=== PATIENT | male | born 1960 | race African-American/Black ===

== ENCOUNTER 2017-02-02 10:35 | Observation (INO) | payer OTHER ==
[2017-02-02] VITALS (9 sets, daily range): BP systolic 124–169; BP diastolic 81–102; PULSE 70–88; RESP 17–20; TEMP 96.5–97.7; O2SAT 95–98
[~2017-02-02] VITALS: Ht 180.3 cm; Wt 127.7 kg
[~2017-02-02 10:35] MED LIST: APPLTAB2 PO; BETA0.052 TOPICAL; FLAX10002; GLIP5TAB8 PO; IBUP1TAB7 PO; METF1000 PO; SIMV20TA PO; VITA500012 PO
[2017-02-02] MEDS ORDERED: ASPIRIN 81 MG CHEW TAB PO ONE (10:45)
[2017-02-02] MEDS ORDERED: NITROGLYCERIN 0.4 MG SL 25 TABS/BTL SL ONE (10:45)
[2017-02-02] MEDS ORDERED: SODIUM CHLORIDE 0.9% FLUSH 10 ML FLUSH IVF PRN (10:45)
--- NOTE | 2017-02-02 10:49 | PD ---
HPI Chief Complaint: Chest Pain Time Seen by Provider: 10:40 Travel History International Travel<30 days: No Contact w/Intl Traveler<30days: No History of Present Illness HPI 57-year-old male states that last night he developed pain in his right chest that moved over to his left chest and went down his arm today. He called his primary and they advised for him to come here. He states he's also having a little bit of shortness of breath with it. He denies other concurrent complaints. He states he's had a stress test before that was negative he thinks that he had at [facility] but does not know the exact date. He denies specific modifying factors. He states he took a baby aspirin before coming in. [facility] Past Medical History Arthritis: Yes (BILAT KNEES) High Cholesterol: Yes Diminished Hearing: No Pneumonia: Yes Social History Alcohol Use: Yes (1-2 DRINKS) Tobacco Use: No Substance Use: No Allergies-Medications (Allergen,Severity, Reaction): Coded Allergies: No Known Allergies (Unverified Allergy, Unknown, 02/02/17) Reported Meds & Prescriptions Reported Meds & Active Scripts Active Glipizide 5 Mg Tab 5 Mg PO DAILY Take 30 minutes before a meal Metformin (Metformin HCl) 1,000 Mg Tab 1,000 Mg PO BIDPC With meals Simvastatin 20 Mg Tab 20 Mg PO DAILY Ibuprofen 800 Mg Tab 800 Mg PO DAILY Reported Apple Cider Vinegar 500 Mg Tab 1 Tab PO DAILY Flax Seed Oil 1000 mg (Flaxseed (Linseed)) 1 Cap Cap Review of Systems Except as stated in HPI: all other systems reviewed are Neg Physical Exam Narrative GENERAL: Well-nourished, well-developed patient. Well-appearing SKIN: Warm and dry. HEAD: Normocephalic and atraumatic. EYES: No injection or drainage. ENT: No nasal drainage noted. NECK: Supple, trachea midline. CARDIOVASCULAR: Regular rate and rhythm RESPIRATORY: Breath sounds equal bilaterally. No accessory muscle use. GASTROINTESTINAL: Abdomen soft, non-tender, nondistended. EXTREMITIES: No edema. NEUROLOGICAL: Awake and alert. Motor and sensory grossly within normal limits. Normal speech. Data Data Last Documented VS Vital Signs Date Time Temp Pulse Resp B/P (MAP) Pulse Ox O2 Delivery O2 Flow Rate FiO2 02/02/17 13:40 55 02/02/17 12:12 17 150/81 (104) 97 Room Air 02/02/17 10:50 97.7 Orders Orders Electrocardiogram (02/02/17 10:44) B-Type Natriuretic Peptide (02/02/17 10:44) Ckmb (Isoenzyme) Profile (02/02/17 10:44) Complete Blood Count With Diff (02/02/17 10:44) Comprehensive Metabolic Panel (02/02/17 10:44) D-Dimer (02/02/17 10:44) Magnesium (Mg) (02/02/17 10:44) Prothrombin Time / Inr (Pt) (02/02/17 10:44) Act Partial Throm Time (Ptt) (02/02/17 10:44) Troponin I (02/02/17 10:44) Lipase (02/02/17 10:44) Chest, Single Ap (02/02/17 10:44) Ecg Monitoring (02/02/17 10:44) Bilateral Bp Monitoring (02/02/17 10:44) Iv Access Insert/Monitor (02/02/17 10:44) Oximetry (02/02/17 10:44) Aspirin Chew (Aspirin Chew) (02/02/17 10:45) Sodium Chloride 0.9% Flush (Ns Flush) (02/02/17 10:45) Nitroglycerin Sl (Nitrostat Sl) (02/02/17 10:45) CKMB (02/02/17 11:00) CKMB% (02/02/17 11:00) Ct Abd/Pel W Iv Contrast(Rout) (02/02/17 ) Iohexol 350 Inj (Omnipaque 350 Inj) (02/02/17 12:20) Admit Order (Ed Use Only) (02/02/17 13:41) Labs Laboratory Tests Test 02/02/17 11:00 White Blood Count 6.2 TH/MM3 Red Blood Count 5.45 MIL/MM3 Hemoglobin 12.6 GM/DL Hematocrit 39.5 % Mean Corpuscular Volume 72.5 FL Mean Corpuscular Hemoglobin 23.0 PG Mean Corpuscular Hemoglobin Concent 31.8 % Red Cell Distribution Width 14.3 % Platelet Count 246 TH/MM3 Mean Platelet Volume 7.2 FL Neutrophils (%) (Auto) 68.1 % Lymphocytes (%) (Auto) 16.9 % Monocytes (%) (Auto) 8.8 % Eosinophils (%) (Auto) 3.8 % Basophils (%) (Auto) 2.4 % Neutrophils # (Auto) 4.3 TH/MM3 Lymphocytes # (Auto) 1.0 TH/MM3 Monocytes # (Auto) 0.5 TH/MM3 Eosinophils # (Auto) 0.2 TH/MM3 Basophils # (Auto) 0.1 TH/MM3 CBC Comment AUTO DIFF Differential Comment AUTO DIFF CONFIRMED Prothrombin Time 10.7 SEC Prothromb Time International Ratio 1.0 RATIO Activated Partial Thromboplast Time 26.2 SEC D-Dimer Quantitative (PE/DVT) LESS THAN 0.19 MG/L FEU Blood Urea Nitrogen 16 MG/DL Creatinine 0.86 MG/DL Random Glucose 129 MG/DL Total Protein 7.8 GM/DL Albumin 4.1 GM/DL Calcium Level 9.6 MG/DL Magnesium Level 2.0 MG/DL Alkaline Phosphatase 58 U/L Aspartate Amino Transf (AST/SGOT) 16 U/L Alanine Aminotransferase (ALT/SGPT) 41 U/L Total Bilirubin 0.5 MG/DL Sodium Level 137 MEQ/L Potassium Level 4.3 MEQ/L Chloride Level 102 MEQ/L Carbon Dioxide Level 22.7 MEQ/L Anion Gap 12 MEQ/L Estimat Glomerular Filtration Rate 111 ML/MIN Total Creatine Kinase 117 U/L Creatine Kinase MB 1.2 NG/ML Troponin I LESS THAN 0.02 NG/ML B-Type Natriuretic Peptide 11 PG/ML Lipase 427 U/L MDM Medical Decision Making Medical Screen Exam Complete: Yes Emergency Medical Condition: Yes Medical Record Reviewed: Yes (past history confirmed) Interpretation(s) CBC & BMP Diagram 02/02/17 11:00 Total Protein 7.8, Albumin 4.1, Calcium Level 9.6, Magnesium Level 2.0, Alkaline Phosphatase 58, Aspartate Amino Transf (AST/SGOT) 16, Alanine Aminotransferase (ALT/SGPT) 41, Total Bilirubin 0.5 Last 24 hours Impressions Chest X-Ray 02/02/17 1044 Signed Impressions: Service Date/Time: Thursday, February 02, 2017 11:08 - CONCLUSION: Normal examination. Daniel Richard Jr., MD Abdomen/Pelvis CT 02/02/17 0000 Signed Impressions: Service Date/Time: Thursday, February 02, 2017 12:11 - CONCLUSION: 1. Moderate hepatic steatosis. 2. No acute inflammatory process. 3. Small mesenteric lymph nodes. 4. Prostatic seeds. Philip Sneed MD Differential Diagnosis PE, musculoskeletal, gastritis, atypical cardiac Narrative Course Will check blood work, chest x-ray, EKG and dose with aspirin and nitroglycerin and reevaluate D-dimer is negative, very minimal elevation in lipase patient having more chest pain will add on CT to rule out concurrent process CT without emergent findings, discussed with patient and given risk factors of age, diabetes, hypertension, high cholesterol and family history he agrees to chest pain center observation Physician Communication Physician Communication dr robles agrees to admit Diagnosis Primary Impression: Chest pain Qualified Codes: R07.9 - Chest pain, unspecified Admitting Information Admitting Physician Requests: Yue Conway MD Feb 02, 2017 10:49
[2017-02-02 11:10] LABS: AUTOMATED NEUTROPHIL # 4.3 TH/MM3 (1.8-7.7); BASOPHIL # 0.1 TH/MM3 (0-0.2); BASOPHIL % 2.4 % (0.0-2.0); EOSINOPHIL # 0.2 TH/MM3 (0-0.4); EOSINOPHIL % 3.8 % (0.0-4.0); HEMATOCRIT 39.5 % (39.0-51.0); HEMO FLAGS AUTO DIFF; LYMPH % 16.9 % (9.0-44.0); MEAN CELL VOLUME 72.5 FL (80.0-100.0); MEAN CORPUSCULAR HGB CONC 31.8 % (32.0-36.0); MONO % 8.8 % (0.0-8.0); NEUT % 68.1 % (16.0-70.0); PLATELET COUNT 246 TH/MM3 (150-450); RED BLOOD COUNT 5.45 MIL/MM3 (4.50-5.90); RED CELL DISTRIBUTION WIDTH 14.3 % (11.6-17.2); WHITE BLOOD COUNT 6.2 TH/MM3 (4.0-11.0)
[2017-02-02 11:20] LABS: CHLORIDE 102 MEQ/L (98-107); POTASSIUM 4.3 MEQ/L (3.5-5.1); SODIUM (NA) 137 MEQ/L (136-145)
--- NOTE | 2017-02-02 11:20 | RADRPT ---
EXAM DATE/TIME: 02/02/2017 11:08 [facility] COMPARISON: No previous studies available for comparison. INDICATIONS : Right side chest pain, short of breath. MEDICAL HISTORY : None. SURGICAL HISTORY : None. ENCOUNTER: Initial ACUITY: 2 days PAIN SCORE: 5/10 LOCATION: Right chest FINDINGS: A single view of the chest demonstrates the lungs to be symmetrically aerated without evidence of mas s, infiltrate or effusion. The cardiomediastinal contours are unremarkable. Osseous structures are intact. CONCLUSION: Normal examination. Daniel Richard Jr., MD on February 02, 2017 at 11:18 Board Certified Radiologist. This report was verified electronically.
[2017-02-02 11:24] LABS: ANION GAP 12 MEQ/L (5-15); BICARBONATE 22.7 MEQ/L (21.0-32.0); BLOOD UREA NITROGEN 16 MG/DL (7-18)
[2017-02-02 11:27] LABS: ALT (GPT) 41 U/L (12-78); AST (GOT) 16 U/L (15-37); GLOMERULAR FILTRATION RATE 111 ML/MIN (>89)
[2017-02-02 11:28] LABS: TOTAL BILIRUBIN ADULT 0.5 MG/DL (0.2-1.0)
[2017-02-02 11:29] LABS: CREATINE KINASE 117 U/L (39-308)
[2017-02-02 11:30] LABS: ALKALINE PHOSPHATASE 58 U/L (45-117); SCAN/DIFF AUTO DIFF CONFIRMED
[2017-02-02 11:32] LABS: APTT (PATIENT) 26.2 SEC (24.3-30.1); PROTHROMBIN TIME - PATIENT 10.7 SEC (9.8-11.6)
[2017-02-02 11:43] LABS: CKMB 1.2 NG/ML (0.5-3.6)
[2017-02-02] MEDS ORDERED: IOHEXOL 350 MG/ML 10 ML VIAL (for RAD DIAG) IVCONTRAST ONE (12:20)
[2017-02-02] MEDS ORDERED: METFORMIN HOLD POST IV CONTRAST SCH ×2 (12:20→15:15)
--- NOTE | 2017-02-02 12:35 | RADRPT ---
EXAM DATE/TIME: 02/02/2017 12:11 [facility] COMPARISON: No previous studies available for comparison. INDICATIONS : Upper quadrant pain. IV CONTRAST: 95 cc Omnipaque 350 (iohexol) IV ORAL CONTRAST: No oral contrast ingested. RADIATION DOSE: 21.71 CTDIvol (mGy) MEDICAL HISTORY : Hypercholesterolemia. Carcinoma, prostate. Diabetes. SURGICAL HISTORY : None. ENCOUNTER: Initial ACUITY: 2 days PAIN SCALE: 3/10 LOCATION: abdomen TECHNIQUE: Volumetric scanning of the abdomen and pelvis was performed. Using automated exposure control and ad justment of the mA and/or kV according to patient size, radiation dose was kept as low as reasonably achievable to obtain optimal diagnostic quality images. DICOM format image data is available electro nically for review and comparison. FINDINGS: LOWER LUNGS: The visualized lower lungs are clear. LIVER: Decreased attenuation without lesion. There is no dilation of the biliary tree. No calcified gallst ones. SPLEEN: Normal size without lesion. PANCREAS: Within normal limits. KIDNEYS: Normal in size and shape. There is no mass, stone or hydronephrosis. ADRENAL GLANDS: Within normal limits. VASCULAR: There is no aortic aneurysm. BOWEL/MESENTERY: The stomach, small bowel, and colon demonstrate no acute abnormality. There is no free intraperitone al air or fluid. Small lymph nodes throughout the mesentery. ABDOMINAL WALL: Within normal limits. RETROPERITONEUM: There is no lymphadenopathy. BLADDER: No wall thickening or mass. REPRODUCTIVE: Prostatic seeds. INGUINAL: There is no lymphadenopathy or hernia. MUSCULOSKELETAL: Within normal limits for patient age. CONCLUSION: 1. Moderate hepatic steatosis. 2. No acute inflammatory process. 3. Small mesenteric lymph nodes. 4. Prostatic seeds. Philip Sneed MD on February 02, 2017 at 12:25 Board Certified Radiologist. This report was verified electronically.
[2017-02-02] MEDS ORDERED: GADODIAMIDE PF 287 MG/ML 20 ML VIAL (for RAD MRI) IV PUSH ONE (13:43)
--- NOTE | 2017-02-02 13:57 | EKG ---
Date Performed: 02/02/2017 Time Performed: 10:40:54 PTAGE: 57 years EKG: Sinus rhythm NORMAL ECG PREVIOUS TRACING : 12/09/2012 20.58 Compared to prior tracing no significant change DOCTOR: Jordan Pichardo Interpretating Date/Time 02/02/2017 13:56:18
[2017-02-02] MEDS ORDERED: ONDANSETRON HCL 4 MG/2 ML VIAL IV PUSH PRN (14:00)
[2017-02-02] MEDS ORDERED: ACETAMINOPHEN 500 MG CPLT PO PRN (14:00)
[2017-02-02] MEDS ORDERED: SODIUM CHLORIDE 0.9% FLUSH 10 ML FLUSH IV FLUSH PRN (14:00)
[2017-02-02] MEDS ORDERED: NITROGLYCERIN 0.4 MG SL 25 TABS/BTL SL PRN (14:00)
[2017-02-02 14:46] LABS: CREATINE KINASE 140 U/L (39-308)
[2017-02-02 14:58] LABS: CKMB 1.2 NG/ML (0.5-3.6)
[2017-02-02] MEDS ORDERED: GLUCAGON 1 MG/ML VIAL OTHER PRN (15:30)
[2017-02-02] MEDS ORDERED: DEXTROSE 50% IN WATER 50 ML VIAL(D50) IV PUSH PRN (15:30)
--- NOTE | 2017-02-02 16:26 | HHI.HP ---
[facility] DA[facility] Admission Diagnosis Chest pain Diagnoses: (1) Chest pain Diagnosis: Principal Chief Complaint: Chest pain Travel History International Travel<30 Days: No Contact w/Intl Traveler <30 Da: No Traveled to Known Affected Are: No History of Present Illness Mr. Joy is a 57-year-old with a known medical history of prostate cancer with chemo and seed implantation, HTN, DM and dyslipidemia who presented to the ED with complaints of chest pain. Patient states that around 2100 last evening while watching tv he developed right sided chest pain. He states the pain started in his right chest which radiated down his right arm. Patient states that the pain was sharp in nature and left his arm feeling weak and numb. Pain is constant in nature, is still present but has lessened in severity. Patient states the pain was an 8/10 at its worse and currently a 5/10 on pain scale. Denies any associated nausea, vomiting, diaphoresis. Does admit to associated shortness of breath with pain. States that the pain is worsened with deep inspiration. Denies any recognizable alleviating factors. Denies any recent illness including fever, chills, headache, cough, abdominal pain, n/v/d or dysuria. Does admit to having a cardiac treadmill stress test this year which was reportedly unremarkable. States he saw Dr. Duff. Patient also has a history of prostate cancer with radiation seed placement and chemotherapy this year. Follows with DAISHA Dias in the outpatient setting. Review of Systems Constitutional: DENIES: Fever, Chills Endocrine: DENIES: Polyuria Eyes: DENIES: Blurred vision Respiratory: DENIES: Cough, Sputum production, Shortness of breath Cardiovascular: COMPLAINS OF: Chest pain, Palpitations, DENIES: Syncope Gastrointestinal: DENIES: Abdominal pain, Bloody stools, Constipation, Diarrhea , Nausea, Vomiting Genitourinary: DENIES: Hematuria, Dysuria Musculoskeletal: COMPLAINS OF: Joint pain Psychiatric: DENIES: Anxiety Except as stated in HPI: all other systems reviewed are Neg Past Family Social History Past Medical History Hypertension Type 2 diabetes mellitus Prostate cancer Dyslipidemia Irritable bowel syndrome Past Surgical History Prostate seed implants. Reported Medications Reported Meds & Active Scripts Active Glipizide 5 Mg Tab 5 Mg PO DAILY Take 30 minutes before a meal Metformin (Metformin HCl) 1,000 Mg Tab 1,000 Mg PO BIDPC With meals Simvastatin 20 Mg Tab 20 Mg PO DAILY Ibuprofen 800 Mg Tab 800 Mg PO DAILY Reported Apple Cider Vinegar 500 Mg Tab 1 Tab PO DAILY Flax Seed Oil 1000 mg (Flaxseed (Linseed)) 1 Cap Cap Allergies: Coded Allergies: No Known Allergies (Unverified Allergy, Unknown, 02/02/17) Active Ordered Medications Current Medications Medications (Trade) Dose Ordered Sig/Amarilys Route Start Time Stop Time Status Last Admin (NS Flush) 2 ml UNSCH PRN IV FLUSH 02/02/17 14:00 (NS Flush) 2 ml BID IV FLUSH 02/02/17 21:00 (Tylenol) 500 mg Q4H PRN PO 02/02/17 14:00 (Zofran Inj) 4 mg Q6H PRN IV PUSH 02/02/17 14:00 (Nitrostat Sl) 0.4 mg Q5M PRN SL 02/02/17 14:00 (Aspirin) 325 mg DAILY PO 02/03/17 09:00 Miscellaneous Information HOLD METFORMIN FOR... Q24H .XX 02/02/17 12:20 (Pravachol) 40 mg DAILY PO 02/03/17 09:00 (NovoLOG SUPPLEMENTAL SCALE) 1 ACHS SLIDING SCALE SQ 02/02/17 17:00 Family History Paternal and maternal medical history significant for cardiovascular disease. Social History Denies any current tobacco use. Admits to 2-3 alcoholic drinks per night. Denies any illicit drug use. Physical Exam Vital Signs Vital Signs Date Time Temp Pulse Resp B/P (MAP) Pulse Ox O2 Delivery O2 Flow Rate FiO2 02/02/17 15:22 02/02/17 13:52 85 18 134/88 (103) 98 Room Air 02/02/17 13:40 85 02/02/17 12:38 80 02/02/17 12:12 82 17 150/81 (104) 97 Room Air 02/02/17 11:22 88 18 152/84 (106) 97 Room Air 02/02/17 11:21 18 02/02/17 10:58 81 18 169/102 (124) 97 Room Air 02/02/17 10:53 81 97 Room Air 02/02/17 10:50 97.7 80 18 145/100 (115) 97 Physical Exam GENERAL: This is a well-nourished, well-developed male patient, lying in bed comfortably in no apparent distress. SKIN: No rashes, ecchymoses or lesions. Warm and dry. HEENT: Atraumatic. Normocephalic. Pupils equal round and reactive. Extraocular motions intact. No scleral icterus. No injection or drainage. Nose without bleeding, purulent drainage or septal hematoma. Throat without erythema, tonsillar hypertrophy or exudate. Uvula midline. Airway patent. NECK: Trachea midline. No JVD. Supple. CARDIOVASCULAR: Regular rate and rhythm without murmurs, gallops, or rubs. RESPIRATORY: Clear to auscultation. Breath sounds equal bilaterally. No wheezes , rales, or rhonchi. GASTROINTESTINAL: Abdomen soft, non-tender, nondistended. No guarding. MUSCULOSKELETAL: Extremities without clubbing, cyanosis, or edema. No joint tenderness, effusion, or edema noted. NEUROLOGICAL: Awake and alert. Cranial nerves II through XII intact. Motor and sensory grossly within normal limits. Five out of 5 muscle strength in all muscle groups. Normal speech. Laboratory Laboratory Tests Test 02/02/17 11:00 02/02/17 14:15 White Blood Count 6.2 Red Blood Count 5.45 Hemoglobin 12.6 Hematocrit 39.5 Mean Corpuscular Volume 72.5 Mean Corpuscular Hemoglobin 23.0 Mean Corpuscular Hemoglobin Concent 31.8 Red Cell Distribution Width 14.3 Platelet Count 246 Mean Platelet Volume 7.2 Neutrophils (%) (Auto) 68.1 Lymphocytes (%) (Auto) 16.9 Monocytes (%) (Auto) 8.8 Eosinophils (%) (Auto) 3.8 Basophils (%) (Auto) 2.4 Neutrophils # (Auto) 4.3 Lymphocytes # (Auto) 1.0 Monocytes # (Auto) 0.5 Eosinophils # (Auto) 0.2 Basophils # (Auto) 0.1 CBC Comment AUTO DIFF Differential Comment AUTO DIFF CONFIRMED Prothrombin Time 10.7 Prothromb Time International Ratio 1.0 Activated Partial Thromboplast Time 26.2 D-Dimer Quantitative (PE/DVT) LESS THAN 0.19 Blood Urea Nitrogen 16 Creatinine 0.86 Random Glucose 129 Total Protein 7.8 Albumin 4.1 Calcium Level 9.6 Magnesium Level 2.0 Alkaline Phosphatase 58 Aspartate Amino Transf (AST/SGOT) 16 Alanine Aminotransferase (ALT/SGPT) 41 Total Bilirubin 0.5 Sodium Level 137 Potassium Level 4.3 Chloride Level 102 Carbon Dioxide Level 22.7 Anion Gap 12 Estimat Glomerular Filtration Rate 111 Total Creatine Kinase 117 140 Creatine Kinase MB 1.2 1.2 Troponin I LESS THAN 0.02 LESS THAN 0.02 B-Type Natriuretic Peptide 11 Lipase 427 Result Diagram: 02/02/17 1100 02/02/17 1100 Imaging Last Impressions Chest X-Ray 02/02/17 1044 Signed Impressions: Service Date/Time: Thursday, February 02, 2017 11:08 - CONCLUSION: Normal examination. Daniel Richard Jr., MD Abdomen/Pelvis CT 02/02/17 0000 Signed Impressions: Service Date/Time: Thursday, February 02, 2017 12:11 - CONCLUSION: 1. Moderate hepatic steatosis. 2. No acute inflammatory process. 3. Small mesenteric lymph nodes. 4. Prostatic seeds. MD Ayush Andrade VTE Risk Assessment Caprini VTE Risk Assessment: No/Low Risk (score <= 1) Caprini Risk Assessment Model Point Value = 1 Point Value = 2 Point Value = 3 Point Value = 5 Age 41-60 Minor surgery BMI > 25 kg/m2 Swollen legs Varicose veins or History of unexplained or recurrent spontaneous Oral contraceptives or hormone replacement Sepsis (< 1 month) Serious lung disease, including pneumonia (< 1 month) Abnormal pulmonary function Acute myocardial infarction Congestive heart failure (< 1 month) History of inflammatory bowel disease Medical patient at bed rest Age 61-74 Arthroscopic surgery Major open surgery (> 45 min) Laparoscopic surgery (> 45 min) Malignancy Confined to bed (> 72 hours) Immobilizing plaster cast Central venous access Age >= 75 History of VTE Family history of VTE Factor V Leiden Prothrombin [id number] Lupus anticoagulant Anticardiolipin antibodies Elevated serum homocysteine Heparin-induced thrombocytopenia Other congenital or acquired thrombophilia Stroke (< 1 month) Elective arthroplasty Hip, pelvis, or leg fracture Acute spinal cord injury (< 1 month) Prophylaxis Regimen Total Risk Factor Score Risk Level Prophylaxis Regimen 0-1 Low Early ambulation 2 Moderate Order ONE of the following: *Sequential Compression Device (SCD) *Heparin 5000 units SQ BID 3-4 Higher Order ONE of the following medications: *Heparin 5000 units SQ TID *Enoxaparin/Lovenox 40 mg SQ daily (WT < 150 kg, CrCl > 30 mL/min) *Enoxaparin/Lovenox 30 mg SQ daily (WT < 150 kg, CrCl > 10-29 mL/min) *Enoxaparin/Lovenox 30 mg SQ BID (WT < 150 kg, CrCl > 30 mL/min) AND/OR *Sequential Compression Device (SCD) 5 or more Highest Order ONE of the following medications: *Heparin 5000 units SQ TID (Preferred with Epidurals) *Enoxaparin/Lovenox 40 mg SQ daily (WT < 150 kg, CrCl > 30 mL/min) *Enoxaparin/Lovenox 30 mg SQ daily (WT < 150 kg, CrCl > 10-29 mL/min) *Enoxaparin/Lovenox 30 mg SQ BID (WT < 150 kg, CrCl > 30 mL/min) AND *Sequential Compression Device (SCD) Assessment and Plan Problem List: (1) Chest pain ICD Code: R07.9 - Chest pain, unspecified Status: Acute Plan: Serial EKGs and serial troponins ordered for ruling out ACS per protocol. Troponin x 2 flat. EKG reviewed showing NSR with no arrhythmias, no change in ST segment to indicate ischemia. D-dimer negative. Abdomen/pelvis CT reviewed showing moderate hepatic steatosis. No acute inflammatory process. Small mesenteric lymph nodes. Prostatic seeds. Patient does state he had a cardiac treadmill stress test this year but cannot remember general claims agent name. Request placed to PCP for records. Awaiting records. Follow clinically. Started on Aspirin 325 mg PO daily. Nitroglycerin SL tablets PRN as needed. Toradol given IV x 1. (2) Hypertension ICD Code: I10 - Essential (primary) hypertension Status: Acute Plan: Initially elevated on presentation. Now better controlled. Not on any medication from home, will continue to monitor trends. Clonidine PRN as needed. (3) Hyperlipidemia ICD Code: E78.5 - Hyperlipidemia, unspecified Status: Acute Plan: Continue home Simvastatin. Lipid panel pending. Follow. (4) Diabetes mellitus, type II ICD Code: E11.9 - Type 2 diabetes mellitus without complications Status: Acute Plan: Will hold home Metformin and Glipizide for now. ACCU check ACHS, sliding scale insulin, cover as needed. Hemoglobin a1C reviewed, 6.9. Continue to monitor BS trends. Problem Qualifiers (1) Chest pain: Qualified Codes: R07.9 - Chest pain, unspecified Shirin Zamora Feb 02, 2017 16:26
[2017-02-02] MEDS ORDERED: cloNIDine HCL 0.1 MG TAB PO PRN (16:30)
[2017-02-02] MEDS ORDERED: KETOROLAC TROMETHAMINE 60 MG/2 ML (IM) VIAL IM ONE (16:30)
[2017-02-02 16:55] LABS: CREATINE KINASE 109 U/L (39-308)
[2017-02-02 17:07] LABS: CKMB 1.1 NG/ML (0.5-3.6)
[2017-02-02] MEDS: INSULIN ASPART SUPPLEMENTAL SCALE SQ SCH ×2 (20:33→21:00)
[2017-02-02] MEDS: SODIUM CHLORIDE 0.9% FLUSH 10 ML FLUSH IV FLUSH SCH (20:34)
[2017-02-02 20:35] LABS: HDL CHOLESTEROL 63.1 MG/DL (40.0-60.0)
[2017-02-02 20:53] LABS: HEMOGLOBIN A1a 1.4 %; HEMOGLOBIN A1b 2.2 %; HEMOGLOBIN Ao 83.4 %; HEMOGLOBIN LA1C 2.2 %; HEMOGLOBIN P3 3.8 %
[2017-02-03] VITALS (7 sets, daily range): BP systolic 117–136; BP diastolic 79–86; PULSE 74–85; RESP 18–20; TEMP 96.3–97.2; O2SAT 93–98
[2017-02-03] MEDS: INSULIN ASPART SUPPLEMENTAL SCALE SQ SCH ×3 (08:32→16:45)
[2017-02-03] MEDS: SODIUM CHLORIDE 0.9% FLUSH 10 ML FLUSH IV FLUSH SCH (08:35)
[2017-02-03] MEDS ORDERED: ASPIRIN 325 MG TAB PO SCH (09:00)
[2017-02-03] MEDS ORDERED: PRAVASTATIN SOD 40 MG TAB PO SCH (09:00)
--- NOTE | 2017-02-03 09:27 | HHI.PR ---
Subjective Remarks Pt doing well. Denies any CP/SOB/N/V. States he still has some right arm "heaviness", no numbness or tingling. able to move it around. No other concerns. has a PCP he follows regularly. Objective Vitals Vital Signs Date Time Temp Pulse Resp B/P (MAP) Pulse Ox O2 Delivery O2 Flow Rate FiO2 02/03/17 04:00 97.2 74 18 117/81 (93) 98 02/03/17 00:00 96.4 78 20 124/79 (94) 97 02/02/17 23:00 74 02/02/17 20:00 97.0 83 18 124/87 (99) 96 02/02/17 20:00 70 02/02/17 19:20 95 21 02/02/17 16:00 96 21 02/02/17 16:00 96.5 84 20 152/89 (110) 96 02/02/17 15:22 02/02/17 13:52 85 18 134/88 (103) 98 Room Air 02/02/17 13:40 85 02/02/17 12:38 80 02/02/17 12:12 82 17 150/81 (104) 97 Room Air 02/02/17 11:22 88 18 152/84 (106) 97 Room Air 02/02/17 11:21 18 02/02/17 10:58 81 18 169/102 (124) 97 Room Air 02/02/17 10:53 81 97 Room Air 02/02/17 10:50 97.7 80 18 145/100 (115) 97 I/O 02/02/17 02/02/17 02/02/17 02/03/17 02/03/17 02/03/17 07:00 15:00 23:00 07:00 15:00 23:00 Intake Total 240 ml 640 ml Balance 240 ml 640 ml Intake Oral 240 ml 640 ml # Voids 1 2 # Bowel Movements 0 Result Diagram: 02/02/17 1100 02/02/17 1100 Imaging Last Impressions Chest X-Ray 02/02/17 1044 Signed Impressions: Service Date/Time: Thursday, February 02, 2017 11:08 - CONCLUSION: Normal examination. Daniel Richard Jr., MD Abdomen/Pelvis CT 02/02/17 0000 Signed Impressions: Service Date/Time: Thursday, February 02, 2017 12:11 - CONCLUSION: 1. Moderate hepatic steatosis. 2. No acute inflammatory process. 3. Small mesenteric lymph nodes. 4. Prostatic seeds. Philip Sneed MD Objective Remarks GENERAL: lying in bed comfortably in no apparent distress. SKIN: Warm and dry. HEENT: Extraocular motions intact. Airway patent. NECK: Trachea midline. CARDIOVASCULAR: Regular rate and rhythm without murmurs RESPIRATORY: Clear to auscultation. Breath sounds equal bilaterally. No wheezes GASTROINTESTINAL: Abdomen soft, non-tender, nondistended. No guarding. MUSCULOSKELETAL: Extremities without edema. NEUROLOGICAL: Awake and alert. Cranial nerves II through XII intact. Motor and sensory grossly within normal limits. Normal speech. A/P Problem List: (1) Chest pain ICD Code: R07.9 - Chest pain, unspecified Status: Acute (2) Hypertension ICD Code: I10 - Essential (primary) hypertension Status: Acute (3) Hyperlipidemia ICD Code: E78.5 - Hyperlipidemia, unspecified Status: Acute (4) Diabetes mellitus, type II ICD Code: E11.9 - Type 2 diabetes mellitus without complications Status: Acute Assessment and Plan (1) Chest pain Chest pain now resolved. Serial troponins neg x 3. EKG reviewed showing NSR with no arrhythmias, no change in ST segment to indicate ischemia. D-dimer negative. Abdomen/pelvis CT reviewed showing moderate hepatic steatosis. No acute inflammatory process. Small mesenteric lymph nodes. Prostatic seeds. Pt did have a nuclear stress test done at [facility] on october which was documented as "probably normal. Relatively small fixed inferior defect more consistent w diaphragmatic attenuation artifact although a small area of infarction cannot be completely excluded. No ischemia is evident. EF 63% ". Call placed to Dr. Lopez, pt's cardiology, rec is for pt to f/u w him in the office. No need for another stress test at this time. Pt agreeable w plan. on Aspirin 325 mg PO daily. Nitroglycerin SL tablets PRN as needed. Arm heaviness: check MRI C-spine. f/u results (2) Hypertension Initially elevated on presentation. Much better controlled. Not on any medication from home, will continue to monitor trends. Clonidine PRN as needed. (3) Hyperlipidemia Continue home Simvastatin. Lipid panel TG 368, LDL 50, HDL 63.1. (4) Diabetes mellitus, type II home Metformin and Glipizide to be resumed as outpatient. ACCU check ACHS, sliding scale insulin, cover as needed. Hemoglobin a1C reviewed, 6.9. Continue to monitor BS trends. Discharge Planning Anticipate d/c later today pending MRI results. KRYSTA w PCP and Dr. Lopez in 1-2 weeks heart healthy diet activity adlib condition: stable. Problem Qualifiers (1) Chest pain: Qualified Codes: R07.9 - Chest pain, unspecified Liya Jiménez MD Feb 03, 2017 09:27
--- NOTE | 2017-02-03 16:34 | EKG ---
Date Performed: 02/02/2017 Time Performed: 14:12:27 PTAGE: 57 years EKG: Sinus rhythm NORMAL ECG Since PREVIOUS TRACING , no significant change noted PREVIOUS TRACIN02/02/2017 10.40 DOCTOR: Milly Christensen Interpretating Date/Time 02/03/2017 16:32:53
--- NOTE | 2017-02-03 16:35 | EKG ---
Date Performed: 02/02/2017 Time Performed: 16:18:44 PTAGE: 57 years EKG: Sinus rhythm NORMAL ECG Since PREVIOUS TRACING , no significant change noted PREVIOUS TRACIN02/02/2017 14.12 DOCTOR: Milly Christensen Interpretating Date/Time 02/03/2017 16:33:26
[2017-02-03] MEDS ORDERED: ASPI-516 CHEW (17:04)
[2017-02-03] MEDS ORDERED: NITR0.4S SL (17:04)
--- NOTE | 2017-02-03 17:10 | HHI.DCPOC ---
Discharge Care Plan Diagnosis: (1) Chest pain (2) Hypertension (3) Hyperlipidemia (4) Diabetes mellitus, type II Your Health Problems Are: Chest Pain Goals to Promote Your Health * To prevent worsening of your condition and complications * To maintain your health at the optimal level Directions to Meet Your Goals Take your medications as prescribed Follow your dietary instruction Follow activity as directed Keep your appointments as scheduled Take your immunizations and boosters as scheduled If your symptoms worsen call your PCP, if no PCP go to Urgent Care Center or Emergency Room Smoking is Dangerous to Your Health. Avoid second hand smoke Call the 24-hour hour crisis hotline for domestic abuse at Shirin Zamora Feb 03, 2017 17:09
--- NOTE | 2017-02-04 07:43 | RADRPT ---
EXAM DATE/TIME: 02/03/2017 14:00 [facility] COMPARISON: No previous studies available for comparison. INDICATIONS : Pain. Neck pain extending into rt hand. CONTRAST: 20 cc Omniscan (gadodiamide) IV MEDICAL HISTORY : Carcinoma, prostate. Diabetes mellitus type 2. Hypertension. SURGICAL HISTORY : Prostate seed implants. ENCOUNTER: Initial ACUITY: 2 day PAIN SCORE: 3/10 LOCATION: neck TECHNIQUE: Multiplanar, multisequence MRI examination of the cervical spine was performed. FINDINGS: The examination is degraded by motion artifact. VERTEBRAE: Normal vertebral body height. Homogeneous marrow signal. ALIGNMENT: No evidence of subluxation. CORD: Normal configuration and signal. POST FOSSA: The cerebellar tonsils are normal in position. POST-CONTRAST: No abnormal areas of enhancement are seen. C2-C3: The thecal sac has a normal configuration. There is no evidence of disc herniation or spinal canal stenosis. The neural foramina are patent bilaterally. C3-C4: The thecal sac has a normal configuration. There is no evidence of disc herniation or spinal canal s tenosis. The neural foramina are patent bilaterally. C4-C5: There is a mild broad-based disc bulge. No central canal stenosis. Lateral recesses and neural forami na are patent. C5-C6: There is a mild broad-based disc bulge. No central canal stenosis. Lateral recesses are patent. Bony uncovertebral hypertrophy generates mild right and moderate left neural foraminal narrowing.. C6-C7: There is a mild broad-based disc bulge. Lateral recesses and central canal are patent. Bony uncoverte bral hypertrophy generates moderate right and severe left neural foraminal narrowing. C7-T1: There is a mild broad-based disc bulge. No central canal stenosis. Lateral recesses and neural forami na are patent. CONCLUSION: 1. Study degraded by motion artifact. 2. Degenerative changes without central canal stenosis. Multilevel neural foraminal narrowing most pr onounced on the left. Each level detailed in the above discussion. Daniel Richard Jr., MD on February 03, 2017 at 15:04 Board Certified Radiologist. This report was verified electronically.
== END 2017-02-03 17:55 | disposition home or self-care (01) ==
LOC: PHED 10:35 → PHEDA 13:42 → PH3A 15:26
PROVIDERS: ADMIT Hospitalist; ATTEND Hospitalist
DX: R07.9 Chest pain, unspecified (principal); R06.02 Shortness of breath; R53.1 Weakness; R20.0 Anesthesia of skin; R10.10 Upper abdominal pain, unspecified; M54.2 Cervicalgia; K76.0 Fatty (change of) liver, not elsewhere classified; I10 Essential (primary) hypertension; E78.00 Pure hypercholesterolemia, unspecified; E11.9 Type 2 diabetes mellitus without complications; K58.9 Irritable bowel syndrome, unspecified; M17.0 Bilateral primary osteoarthritis of knee; Z79.899 Other long term (current) drug therapy; Z79.84 Long term (current) use of oral hypoglycemic drugs; Z85.46 Personal history of malignant neoplasm of prostate
CPT/HCPCS: 71010; 72156; 74177; 80053; 80061; 82550; 82552; 82948; 83036; 83690; 83735; 83880; 84484; 85025; 85379; 85610; 85730; 93005; 99285; A9579; G0378; J1815; Q9967